=== PATIENT | female | born 1970 | race Caucasian/White ===

== ENCOUNTER 2016-09-27 13:17 | Emergency (ER) | payer OTHER ==
[~2016-09-27] VITALS: Ht 154.9 cm; Wt 59.0 kg
--- NOTE | 2016-09-27 13:42 | ED UPPER/LOWER EXTREMITY COMPL ---
History of Present Illness General Chief Complaint: Animal/Insect Bite Stated Complaint: DOG BITE R HAND, WORK RELATED INJURY Source: patient Exam Limitations: no limitations Vital Signs & Intake/Output Vital Signs & Intake/Output Vital Signs Date Time Temp Pulse Resp B/P B/P Pulse O2 O2 Flow FiO2 Mean Ox Delivery Rate 09/27 1419 92 108/60 09/27 1325 98.6 100 18 160/100 98 Room Air Allergies Coded Allergies: NO KNOWN ALLERGIES (01/20/12) Reconcile Medications Amoxicillin/Potassium Clav (Augmentin 875-125 Tablet) 875 MG-125 MG TABLET 1 TAB PO BID DOG BITE Ibuprofen 800 MG TABLET 1 TAB PO TID PRN PAIN Lactobacillus Acidophilus (Probiotic) 10 BILLION CELL CAPSULE 1 CAP PO TID PRN ABX PROPHYLAXIS Triage Note: 45 YO FEMALE TO TRIAGE C/O DOG BITE TO R HAND. NOTED WITH 1 PUNCTURE WOUND TO HAND. BLEEDING CONTROLLED. STATES THIS HAPPENED AT WORK AND DOG IS UTD WITH SHOTS. PT STATES SHE IS UTD WITH TETANUS Triage Nurses Notes Reviewed? yes Onset: Just prior to arrival Duration: hour(s): (1) Timing: no prior history Severity: moderate Severity Numbers: 7 Pain/Injury Location: Right: Hand. Method of Injury: DOG BITE Modifying Factors: Worsens With: movement. : No Patient currently breastfeeds: No HPI: Patient is a 45-year-old female presenting to the emergency department with chief complaint of dog bite to right hand that happened at work just prior to arrival. Patient knows that the dog is up-to-date with immunizations. She is up-to-date with tetanus. Pain is moderate achy throbbing worse with palpation and range of motion. No fevers or chills. Pain does not radiate. She washed the wound immediately. Came in for evaluation. Has not taken anything for pain. Denies any other injuries or bites. (JAMES HERNANDEZ) Past History Travel History Traveled to [place] past 21 day No Medical History Any Pertinent Medical History? 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 No (JAMES HERNANDEZ) Review of Systems Review of Systems Constitutional: Reports: no symptoms. Comments Review of systems: See HPI, All other systems negative. Constitutional, no chills fever or weight loss HEENT: No visual changes no sore throat no congestion Cardiovascular: No chest pain ,palpitation Skin, no jaundice Respiratory: No dyspnea cough sputum or hemoptysis GI: No nausea no vomiting Muscle skeletal: no back pain, no neck pain, Neurologic: No numbness no confusion no headaches Psych: No stress anxiety Immunology: No splenectomy or history of AIDS (JAMES HERNANDEZ) Physical Exam Physical Exam General Appearance: well developed/nourished, no apparent distress, alert, awake , comfortable Comments: Well-developed well-nourished person in no acute distress HEENT: Nose is atraumatic. Neck: Normal inspection Cardiovascular: Radial pulses are 2+ bilaterally. Respiratory: . No respiratory distress. Extremity: mild edema and erythem on the right thenar eminence, positive tenderness to palpation. Able to move all digits on the infection is bilaterally without difficulty. Capillary refills intact in upper extremities. Neuro: Alert oriented x3, motor sensory normal, cranial nerves II through XII grossly intact. skin: Small puncture wound approximately 5 mm in size noted over the thenar eminence of the right hand, mild surrounding erythema, mild edema, tender to palpation. No discharge. No foreign bodies appreciated. No streaking. Psych: Mood and affect is normal, memory and judgment is normal. (JAMES HERNANDEZ) Progress Differential Diagnosis: cellulitis, dog bite, need for antibiotic prophylaxis Plan of Care: Current Medications Sig/Mika Start time Last Medication Dose Stop Time Status Admin Ampicillin Sodium/ 3,000 MG ONCE ONE 09/27 1345 AC 09/27 Sulbactam Sodium 09/27 1414 1405 (Unasyn) Sodium Chloride 100 ML (Normal Saline 0.9%) Comments: Due to dog bite being on the palmar surface of the right hand patient will be medicated with IV dose of Unasyn, IV Toradol for pain and swelling. Patient will then be discharged home with oral Augmentin and oral ibuprofen. She'll return for any worsening symptoms, fevers, increased redness or streaking. Otherwise she'll follow-up with her primary care physician over the next 5-7 days. Patient nontoxic, afebrile. Wound was cleaned with Betadine and saline, bacitracin and dressing placed. repeat b/p is 106/60. (JAMES HERNANDEZ) Departure Departure Time of Disposition: 1343 Disposition: HOME OR SELF CARE Condition: Stable Referrals: UNKNOWN (PCP) Additional Instructions: FOLLOW UP WITH PCP CALL TO MAKE APPT. TAKE AUGMENTIN PRESCRIBED. TAKE IBUPORFEN AND PROBIOTIC PRESCRIBED. RETURN FOR WORSENING REDNESS, PAIN OR SWELLING. 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 I have also reviewed all the pertinent lab results and diagnostic results. I agree with the findings and the plan of care as documented in the PA's[employer]'s documentation. [X] I have reviewed the ED Record and agree with the PA's/[employer]'s documentation. [] Additions or exceptions (if any) to the PAs/[employer]'s note and plan are summarized below: [] (MAGALYS CH,JONATHAN Morales) Procedures Additional Procedures Additional Procedures: wound care Progress: Area was cleaned and prepped with Betadine, bacitracin placed. (JAMES HERNANDEZ)
[2016-09-27] MEDS ORDERED: IBUPROFEN800 M1 PO (13:46)
[2016-09-27] MEDS ORDERED: AUGMENTIN 875-1 EACH PO (13:46)
[2016-09-27] MEDS ORDERED: PROBIOTIC1 EACH PO (13:46)
[2016-09-27 14:19] VITALS: BP 108/60
== END 2016-09-27 15:01 ==
LOC: ERH 13:17
DX: S61.451A Open bite of right hand, initial encounter (principal); W54.0XXA Bitten by dog, initial encounter; Y93.9 Activity, unspecified; Y92.9 Unspecified place or not applicable
CPT/HCPCS: 96374; 96375; J1885